=== PATIENT | male | born 1950 | race Hispanic/Latino ===

== ENCOUNTER 2021-02-21 13:04 | Emergency (ER) | payer MEDICARE ==
[2021-02-21 14:35] LABS: Bilirubin,Urine NEG (Negative); Blood,Urine SM (Negative); Color,Urine Amber (Yellow); Mucus,Urine 3+ /HPF; Renal Epithelial Cells,Urine 4 /LPF; Urobilinogen,Urine < 2.0 mg/dL (<2.0)
[2021-02-21 14:36] LABS: RBC,Urine < 1.0 /HPF (0.0-6.0)
[2021-02-21 14:54] LABS: Amphetamine Screen,Urine Negative; Benzodiazepines Screen,Urine Negative; Cannabinoid Screen,Urine Negative; Cocaine Screen,Urine Negative; Methadone Screen,Urine Negative; Opiate Screen,Urine Negative
[2021-02-21 15:30] LABS: Alanine Aminotransferase 27 units/L (7-56); Albumin 5.1 g/dL (3.9-5); BUN/Creatinine Ratio 38; Blood Urea Nitrogen 30 mg/dL (9-20); Calcium 9.8 mg/dL (8.4-10.2); Hemolysis Index 5
[2021-02-21 15:32] LABS: Basophils % (Auto) 0.8 % (0.0-1.8); Eosinophils % (Auto) 0.3 % (0.0-4.3); Hematocrit 46.4 % (35.5-45.6); Hemoglobin 15.4 gm/dl (11.8-15.2); Lymphocytes # (Auto) 1.4 K/mm3 (1.2-5.4); Lymphocytes % (Auto) 23.4 % (13.4-35.0); Mean Corpuscular HGB Conc 33 % (32-34); Mean Corpuscular Volume 85 fl (84-94); Monocytes # (Auto) 0.4 K/mm3 (0.0-0.8); Monocytes % (Auto) 6.9 % (0.0-7.3); Platelet Count 170 K/mm3 (140-440); Red Blood Count 5.49 M/mm3 (3.65-5.03); Red Cell Distribution Width 16.6 % (13.2-15.2)
--- NOTE | 2021-02-21 19:48 | Emergency Department Report ---
ED Psych HPI - General Chief Complaint: Altered Mental Status Stated Complaint: 1013/UNABLE TO CARE FOR HIMESELF/ Time Seen by Provider: 02/21/21 13:18 Source: patient Mode of arrival: Ambulatory - History of Present Illness Initial Comments: Chief complaint: Abnormal behavior HPI: This is a 70-year-old male with history of bipolar disorder schizophrenia who presents with abnormal behavior on 1013. Patient brought by [facility] department. License psychiatric nurse placed patient on 1013. Patient is unable to care for himself. Patient has been wandering around the neighborhood. Patient's not attending to his daily needs. Patient is directable. He denies suicidal homicidal ideation. He has poor insight. Officer informed me that he was found wandering the neighborhood. MD Complaint: other (Wandering neighborhood not eating not bathing) Associated Psychiatric Symptoms: none Quality: constant Improves With: none Worsens With: none Associated Symptoms: denies other symptoms - Related Data Previous Rx's Medication Instructions Recorded Last Taken Type Amoxicillin/Potassium Clav 1 each PO BID #10 tablet 11/19/17 Unknown Rx [Augmentin 875-125 Tablet] Benztropine [Cogentin] 1 mg PO BID #60 tablet 11/20/17 Unknown Rx clonazePAM [KlonoPIN] 0.5 mg PO BID #60 tablet 11/20/17 Unknown Rx Allergies Allergy/AdvReac Type Severity Reaction Status Date / Time No Known Allergies Allergy Unverified 11/13/17 14:18 ED Review of Systems ROS: Stated complaint: 1013/UNABLE TO CARE FOR HIMESELF/ Other details as noted in HPI Comment: Unobtainable due to pts medical conditions (Dementia) ED Past Medical Hx - Past Medical History Previous Medical History?: Yes Hx Psychiatric Treatment: Yes (Bipolar disorder, schizophrenia) - Surgical History Additional Surgical History: hernia - Social History Smoking Status: Former Smoker - Medications Home Medications: Home Medications Medication Instructions Recorded Confirmed Last Taken Type Amoxicillin/Potassium Clav 1 each PO BID #10 tablet 11/19/17 Unknown Rx [Augmentin 875-125 Tablet] Benztropine [Cogentin] 1 mg PO BID #60 tablet 11/20/17 Unknown Rx clonazePAM [KlonoPIN] 0.5 mg PO BID #60 tablet 11/20/17 Unknown Rx ED Physical Exam - General Limitations: Altered Mental Status General appearance: alert, in no apparent distress, other (Disheveled clothing cooperative poor insight) - Head Head exam: Present: atraumatic, normocephalic - Eye Eye exam: Present: normal appearance - ENT ENT exam: Present: mucous membranes moist - Neck Neck exam: Present: normal inspection, full ROM - Respiratory Respiratory exam: Present: normal lung sounds bilaterally. Absent: respiratory distress, wheezes, rales, rhonchi - Cardiovascular Cardiovascular Exam: Present: regular rate, normal rhythm, normal heart sounds. Absent: systolic murmur, diastolic murmur, rubs, gallop - GI/Abdominal GI/Abdominal exam: Present: soft, normal bowel sounds. Absent: distended, tenderness, guarding, rebound - Rectal Rectal exam: Present: deferred - Extremities Exam Extremities exam: Present: normal inspection - Back Exam Back exam: Present: normal inspection - Neurological Exam Neurological exam: Present: alert, other (Oriented to name) - Psychiatric Psychiatric exam: Present: flat affect - Skin Skin exam: Present: warm, dry, intact, normal color. Absent: rash ED Course Vital Signs 02/21/21 02/21/21 02/21/21 13:35 13:43 17:48 Temperature 97.6 F 98.0 F Pulse Rate 100 H 96 H Respiratory 18 20 Rate Blood Pressure 140/90 146/105 [Left] O2 Sat by Pulse 96 98 100 Oximetry 02/21/21 02/21/21 02/22/21 19:29 20:19 06:00 Temperature 97.9 F 97.6 F Pulse Rate 101 H 100 H Respiratory 18 18 Rate Blood Pressure 151/105 145/106 [Left] O2 Sat by Pulse 98 99 98 Oximetry 02/22/21 02/23/21 20:14 02:29 Temperature 98.4 F Pulse Rate 75 Respiratory 16 Rate Blood Pressure 113/74 [Left] O2 Sat by Pulse 98 96 Oximetry - Reevaluation(s) Reevaluation #1: 02/23/21 13:56 Mr. Iraheta will be transferred to [facility] psych for further treatment evaluation. Diagnosis bipolar disorder from mental health team ED Medical Decision Making - Lab Data Result diagrams: 02/21/21 13:22 02/21/21 13:27 Laboratory Results - last 24 hr 02/21/21 02/21/21 02/21/21 13:22 13:27 13:27 WBC 5.9 RBC 5.49 H Hgb 15.4 H Hct 46.4 H MCV 85 MCH 28 MCHC 33 RDW 16.6 H Plt Count 170 Lymph % (Auto) 23.4 [place] % (Auto) 6.9 Eos % (Auto) 0.3 Baso % (Auto) 0.8 Lymph # (Auto) 1.4 [place] # (Auto) 0.4 Eos # (Auto) 0.0 Baso # (Auto) 0.0 Seg Neutrophils % 68.6 Seg Neutrophils # 4.0 Sodium 143 Potassium 4.0 Chloride 100.7 Carbon Dioxide 27 Anion Gap 19 BUN 30 H Creatinine 0.8 Estimated GFR > 60 BUN/Creatinine Ratio 38 Glucose 101 H Calcium 9.8 Total Bilirubin 1.10 AST 38 ALT 27 Alkaline Phosphatase 93 Total Protein 7.8 Albumin 5.1 H Albumin/Globulin Ratio 1.9 Urine Color Urine Turbidity Urine pH Ur Specific [place] Urine Protein Urine Glucose (UA) Urine Ketones Urine Blood Urine Nitrite Urine Bilirubin Urine Urobilinogen Ur Leukocyte Esterase Urine WBC (Auto) Urine RBC (Auto) U Epithel Cells (Auto) Ur Renal Epithelial Cell Uric Acid Crystals Urine Mucus Salicylates < 0.3 L Urine Opiates Screen Urine Methadone Screen Acetaminophen Ur Barbiturates Screen Ur Phencyclidine Scrn Ur Amphetamines Screen U Benzodiazepines Scrn Urine Cocaine Screen U Marijuana (THC) Screen Drugs of Abuse Note Plasma/Serum Alcohol 02/21/21 02/21/21 02/21/21 13:27 13:27 Unknown WBC RBC Hgb Hct MCV MCH MCHC RDW Plt Count Lymph % (Auto) [place] % (Auto) Eos % (Auto) Baso % (Auto) Lymph # (Auto) [place] # (Auto) Eos # (Auto) Baso # (Auto) Seg Neutrophils % Seg Neutrophils # Sodium Potassium Chloride Carbon Dioxide Anion Gap BUN Creatinine Estimated GFR BUN/Creatinine Ratio Glucose Calcium Total Bilirubin AST ALT Alkaline Phosphatase Total Protein Albumin Albumin/Globulin Ratio Urine Color Yuridia Urine Turbidity Slightly-cloudy Urine pH 5.0 Ur Specific [place] 1.029 Urine Protein 30 mg/dl Urine Glucose (UA) Neg Urine Ketones 20 Urine Blood Sm Urine Nitrite Neg Urine Bilirubin Neg Urine Urobilinogen < 2.0 Ur Leukocyte Esterase Neg Urine WBC (Auto) 9.0 H Urine RBC (Auto) < 1.0 U Epithel Cells (Auto) 16.0 H Ur Renal Epithelial Cell 4 Uric Acid Crystals 3+ Urine Mucus 3+ Salicylates Urine Opiates Screen Urine Methadone Screen Acetaminophen 5.0 L Ur Barbiturates Screen Ur Phencyclidine Scrn Ur Amphetamines Screen U Benzodiazepines Scrn Urine Cocaine Screen U Marijuana (THC) Screen Drugs of Abuse Note Plasma/Serum Alcohol < 0.01 02/21/21 Unknown WBC RBC Hgb Hct MCV MCH MCHC RDW Plt Count Lymph % (Auto) [place] % (Auto) Eos % (Auto) Baso % (Auto) Lymph # (Auto) [place] # (Auto) Eos # (Auto) Baso # (Auto) Seg Neutrophils % Seg Neutrophils # Sodium Potassium Chloride Carbon Dioxide Anion Gap BUN Creatinine Estimated GFR BUN/Creatinine Ratio Glucose Calcium Total Bilirubin AST ALT Alkaline Phosphatase Total Protein Albumin Albumin/Globulin Ratio Urine Color Urine Turbidity Urine pH Ur Specific [place] Urine Protein Urine Glucose (UA) Urine Ketones Urine Blood Urine Nitrite Urine Bilirubin Urine Urobilinogen Ur Leukocyte Esterase Urine WBC (Auto) Urine RBC (Auto) U Epithel Cells (Auto) Ur Renal Epithelial Cell Uric Acid Crystals Urine Mucus Salicylates Urine Opiates Screen Negative Urine Methadone Screen Negative Acetaminophen Ur Barbiturates Screen Negative Ur Phencyclidine Scrn Negative Ur Amphetamines Screen Negative U Benzodiazepines Scrn Negative Urine Cocaine Screen Negative U Marijuana (THC) Screen Negative Drugs of Abuse Note Disclamer Plasma/Serum Alcohol - Medical Decision Making Clinical impression: Dementia, no evidence of psychosis. Patient is unable to perform ADLs without assistance. He will need stabilization and placement. I have requested evaluation for [facility] placement. I requested case management consultation. CBC chemistry within normal limits urine toxicology serum toxicology with normal limits. Contaminated urine evidence of UTI Critical care attestation.: If time is entered above; I have spent that time in minutes in the direct care of this critically ill patient, excluding procedure time. ED Disposition Clinical Impression: Dementia, Bipolar disorder Disposition: [address] [place] [address] Is pt being admited?: No Does the pt Need Aspirin: No Additional Instructions: OUTPATIENT MENTAL HEALTH RESOURCES [facility], [facility] Dylan Posadas MD: [address] [place] [address] [place] [address] [facility]: [facility] [address] [place] [address] [place], [place] [id number] [phone] [facility]: [facility] Healthcare: [address] [facility] [address] [place] [address] [facility] [id number] [facility]: Rosales Kirkpatrick MD: [address] [facility] [address] [facility] [id number] [facility]: [address] [place] [phone] [place] CRISIS AND ACCESS LINE:
--- NOTE | 2021-02-22 08:31 | Consultation ---
History of Present Illness - Reason for Consult Consult date: 02/22/21 Reason for consult: abnormal behavior - History of Present Psychiatric Illness Scot Leigh is a 71y/o male patient I evaluated today. The patient says he was brought to the hospital because police says he was acting strangely. He says "I was looking for my family and really don't know why I ended up back here. But they says I wasn't acting right." The patient is a poor historian and has poor insight overall. When asking where did he live, he was not really upfront. He initially said by himself, he then said with other people. He denies SI/HI, although it is documented by the gas station supervisor that his sister states the patient attempted to take all of his seroquel. When asking the patient about may llucinations, he says "sometimes, but not now." He says he hears voices sometimes but denies at present. The patient says he has a history of Bipolar and takes seroquel PAST PSYCHIATRIC HISTORY: Diagnoses: Bipolar Suicide attempts or Self-harm behavior: Denies Prior psychiatric hospitalizations: Yes Substance Abuse history: Denies Previous psychiatric medications tried: seroquel Outpatient treatment: Yes PAST MEDICAL HISTORY: None reported or document Family Psychiatric History: None reported or documented SOCIAL HISTORY Marital Status: Single Living Arrangements: Lives with family Employment Status: Disabled Access to guns/weapons: Denies Education: History of Abuse: Denies Legal History: Denies REVIEW OF SYSTEMS Constitutional: Negative for weight loss ENT: Negative for stridor Respiratory: Negative for cough or hemoptysis All other systems reviewed and are negative MENTAL STATUS EXAMINATION General Appearance and Behavior: Age appropriate, good hygiene, wearing appropriate clothes. calm, cooperative Cooperation: Cooperative Psychomotor Behavior: Psychomotor normal Mood: okay Affect and affective range: congruent with stated mood Thought Process: circumstantial Thought Content: None Speech: normal tone and pace Suicidal Ideation: Denies, but possibly not being upfront Homicidal Ideation: Denies Hallucinations: sometimes, but not at present Delusions:None elicited Impulse Control: Limited Insight and Judgment: Poor Memory: Limited Attention: distracted Orientation: a/o x 3 Assessment (1)Bipolar Disorder Current Visit: Yes Status: Acute Treatment Plan 1013 Start Seroquel 25mg po BID Start Mirtazepin 7.5mg po qhs Start Zoloft 25mg po daily Continue previously prescribed medications and follow up with outpatient psychiatry in 7 to 10 days upon discharge. The patient to comply with previously prescribed medications Risks, benefits and alternatives of medications discussed with the patient, questions answered and consent obtained from patient. PSYCHOTHERAPY: Supportive psychotherapy provided MEDICAL: Per primary team DELIRIUM PRECAUTIONS: Please re-orient patient frequently, keep lights on during the day, and minimize benzodiazepines and opiates as these medications could wo rsen patient's confusion. STUDENT ACCOUNTS COORDINATOR: Defer to primary DISPOSITION: Recommend acute psychiatric inpatient treatment due to the fact that although the patient denies SI, he was attempting to take a full bottle of seroquel. FOLLOW-UP: Will follow. Case staffed with Dr. Tam Medications and Allergies Allergies Allergy/AdvReac Type Severity Reaction Status Date / Time No Known Allergies Allergy Unverified 11/13/17 14:18 Home Medications Medication Instructions Recorded Confirmed Last Taken Type Amoxicillin/Potassium Clav 1 each PO BID #10 tablet 11/19/17 Unknown Rx [Augmentin 875-125 Tablet] Benztropine [Cogentin] 1 mg PO BID #60 tablet 11/20/17 Unknown Rx clonazePAM [KlonoPIN] 0.5 mg PO BID #60 tablet 11/20/17 Unknown Rx Mental Status Exam - Vital signs Last Vital Signs Temp 97.6 F 02/22/21 06:00 Pulse 100 H 02/22/21 06:00 Resp 18 02/22/21 06:00 BP 145/106 02/22/21 06:00 Pulse Ox 98 02/22/21 06:00 Results Result Diagrams: 02/21/21 13:22 02/21/21 13:27 Abnormal lab results 02/21/21 02/21/21 02/21/21 Range/Units 13:22 13:27 13:27 RBC 5.49 H (3.65-5.03) M/mm3 Hgb 15.4 H (11.8-15.2) gm/dl Hct 46.4 H (35.5-45.6) % RDW 16.6 H (13.2-15.2) % BUN 30 H (9-20) mg/dL Glucose 101 H (75-100) mg/dL Albumin 5.1 H (3.9-5) g/dL Urine WBC (Auto) (0.0-6.0) /HPF U Epithel Cells (Auto) (0-13.0) /HPF Salicylates < 0.3 L (2.8-20.0) mg/dL Acetaminophen (10.0-30.0) ug/mL 02/21/21 02/21/21 Range/Units 13:27 Unknown RBC (3.65-5.03) M/mm3 Hgb (11.8-15.2) gm/dl Hct (35.5-45.6) % RDW (13.2-15.2) % BUN (9-20) mg/dL Glucose (75-100) mg/dL Albumin (3.9-5) g/dL Urine WBC (Auto) 9.0 H (0.0-6.0) /HPF U Epithel Cells (Auto) 16.0 H (0-13.0) /HPF Salicylates (2.8-20.0) mg/dL Acetaminophen 5.0 L (10.0-30.0) ug/mL All other labs normal.
[2021-02-22] MEDS: QUEtiapine 25 MG TAB PO SCH ×2 (09:46→22:14)
[2021-02-22] MEDS: MIRTAZAPINE 15 MG TAB PO SCH (09:46)
[2021-02-22] MEDS: SERTRALINE 25 MG TAB PO SCH (09:46)
[2021-02-22] MEDS ORDERED: HALOPERIDOL LACTATE 5 MG/1 ML INJ IM ONE (22:06)
--- NOTE | 2021-02-22 22:10 | Event Note ---
Date: 02/22/21 The patient was evaluated in the emergency department for symptoms described in the history of present illness. He/she was evaluated in the context of the global COVID-19 pandemic, which necessitated consideration that the patient might be at risk for infection with the virus that causes COVID-19. Institutional protocols and algorithms that pertain to the evaluation of patients at risk for COVID-19 are in a state of rapid change based on information released by regulatory bodies including the CDC and federal and state organizations. These policies and algorithms were followed during the patient's care in the emergency department. Please note that these policies, procedures and recommendations changed on a rapid basis. Laboratory studies, vital signs, nursing documentation, ER documentation, and psychiatric documentation are reviewed and appreciated. Nursing team reports no acute events this morning or concerns. The patient is awake and ambulating and does not appear to be in any acute distress. The patient was deemed medically suitable for psychiatric disposition and placement during his initial ER evaluation. The patient continues to remain medically suitable for psychiatric placement and disposition. He is currently pending psychiatric placement. Vital Signs 02/21/21 02/21/21 02/21/21 13:35 13:43 17:48 Temperature 97.6 F 98.0 F Pulse Rate 100 H 96 H Respiratory 18 20 Rate Blood Pressure 140/90 146/105 [Left] O2 Sat by Pulse 96 98 100 Oximetry 02/21/21 02/21/21 02/22/21 19:29 20:19 06:00 Temperature 97.9 F 97.6 F Pulse Rate 101 H 100 H Respiratory 18 18 Rate Blood Pressure 151/105 145/106 [Left] O2 Sat by Pulse 98 99 98 Oximetry 02/22/21 20:14 Temperature Pulse Rate Respiratory Rate Blood Pressure [Left] O2 Sat by Pulse 98 Oximetry Lab Results 02/21/21 02/21/21 02/21/21 Range/Units 13:22 13:27 13:27 WBC 5.9 (4.5-11.0) K/mm3 RBC 5.49 H (3.65-5.03) M/mm3 Hgb 15.4 H (11.8-15.2) gm/dl Hct 46.4 H (35.5-45.6) % MCV 85 (84-94) fl MCH 28 (28-32) pg MCHC 33 (32-34) % RDW 16.6 H (13.2-15.2) % Plt Count 170 (140-440) K/mm3 Lymph % (Auto) 23.4 (13.4-35.0) % [place] % (Auto) 6.9 (0.0-7.3) % Eos % (Auto) 0.3 (0.0-4.3) % Baso % (Auto) 0.8 (0.0-1.8) % Lymph # (Auto) 1.4 (1.2-5.4) K/mm3 [place] # (Auto) 0.4 (0.0-0.8) K/mm3 Eos # (Auto) 0.0 (0.0-0.4) K/mm3 Baso # (Auto) 0.0 (0.0-0.1) K/mm3 Seg Neutrophils % 68.6 (40.0-70.0) % Seg Neutrophils # 4.0 (1.8-7.7) K/mm3 Sodium 143 (137-145) mmol/L Potassium 4.0 (3.6-5.0) mmol/L Chloride 100.7 (98-107) mmol/L Carbon Dioxide 27 (22-30) mmol/L Anion Gap 19 mmol/L BUN 30 H (9-20) mg/dL Creatinine 0.8 (0.8-1.3) mg/dL Estimated GFR > 60 ml/min BUN/Creatinine Ratio 38 % Glucose 101 H (75-100) mg/dL Calcium 9.8 (8.4-10.2) mg/dL Total Bilirubin 1.10 (0.1-1.2) mg/dL AST 38 (5-40) units/L ALT 27 (7-56) units/L Alkaline Phosphatase 93 (35-129) units/L Total Protein 7.8 (6.3-8.2) g/dL Albumin 5.1 H (3.9-5) g/dL Albumin/Globulin Ratio 1.9 % Urine Color (Yellow) Urine Turbidity (Clear) Urine pH (5.0-7.0) Ur Specific [place] (1.003-1.030) Urine Protein (Negative) mg/dL Urine Glucose (UA) (Negative) mg/dL Urine Ketones (Negative) mg/dL Urine Blood (Negative) Urine Nitrite (Negative) Urine Bilirubin (Negative) Urine Urobilinogen (<2.0) mg/dL Ur Leukocyte Esterase (Negative) Urine WBC (Auto) (0.0-6.0) /HPF Urine RBC (Auto) (0.0-6.0) /HPF U Epithel Cells (Auto) (0-13.0) /HPF Ur Renal Epithelial Cell /LPF Uric Acid Crystals Urine Mucus /HPF Salicylates < 0.3 L (2.8-20.0) mg/dL Urine Opiates Screen Urine Methadone Screen Acetaminophen (10.0-30.0) ug/mL Ur Barbiturates Screen Ur Phencyclidine Scrn Ur Amphetamines Screen U Benzodiazepines Scrn Urine Cocaine Screen U Marijuana (THC) Screen Drugs of Abuse Note Plasma/Serum Alcohol (0-0.07) % 02/21/21 02/21/21 02/21/21 Range/Units 13:27 13:27 Unknown WBC (4.5-11.0) K/mm3 RBC (3.65-5.03) M/mm3 Hgb (11.8-15.2) gm/dl Hct (35.5-45.6) % MCV (84-94) fl MCH (28-32) pg MCHC (32-34) % RDW (13.2-15.2) % Plt Count (140-440) K/mm3 Lymph % (Auto) (13.4-35.0) % [place] % (Auto) (0.0-7.3) % Eos % (Auto) (0.0-4.3) % Baso % (Auto) (0.0-1.8) % Lymph # (Auto) (1.2-5.4) K/mm3 [place] # (Auto) (0.0-0.8) K/mm3 Eos # (Auto) (0.0-0.4) K/mm3 Baso # (Auto) (0.0-0.1) K/mm3 Seg Neutrophils % (40.0-70.0) % Seg Neutrophils # (1.8-7.7) K/mm3 Sodium (137-145) mmol/L Potassium (3.6-5.0) mmol/L Chloride (98-107) mmol/L Carbon Dioxide (22-30) mmol/L Anion Gap mmol/L BUN (9-20) mg/dL Creatinine (0.8-1.3) mg/dL Estimated GFR ml/min BUN/Creatinine Ratio % Glucose (75-100) mg/dL Calcium (8.4-10.2) mg/dL Total Bilirubin (0.1-1.2) mg/dL AST (5-40) units/L ALT (7-56) units/L Alkaline Phosphatase (35-129) units/L Total Protein (6.3-8.2) g/dL Albumin (3.9-5) g/dL Albumin/Globulin Ratio % Urine Color [place] (Yellow) Urine Turbidity Slightly-cloudy (Clear) Urine pH 5.0 (5.0-7.0) Ur Specific [place] 1.029 (1.003-1.030) Urine Protein 30 mg/dl (Negative) mg/dL Urine Glucose (UA) Neg (Negative) mg/dL Urine Ketones 20 (Negative) mg/dL Urine Blood Sm (Negative) Urine Nitrite Neg (Negative) Urine Bilirubin Neg (Negative) Urine Urobilinogen < 2.0 (<2.0) mg/dL Ur Leukocyte Esterase Neg (Negative) Urine WBC (Auto) 9.0 H (0.0-6.0) /HPF Urine RBC (Auto) < 1.0 (0.0-6.0) /HPF U Epithel Cells (Auto) 16.0 H (0-13.0) /HPF Ur Renal Epithelial Cell 4 /LPF Uric Acid Crystals 3+ Urine Mucus 3+ /HPF Salicylates (2.8-20.0) mg/dL Urine Opiates Screen Urine Methadone Screen Acetaminophen 5.0 L (10.0-30.0) ug/mL Ur Barbiturates Screen Ur Phencyclidine Scrn Ur Amphetamines Screen U Benzodiazepines Scrn Urine Cocaine Screen U Marijuana (THC) Screen Drugs of Abuse Note Plasma/Serum Alcohol < 0.01 (0-0.07) % 02/21/21 Range/Units Unknown WBC (4.5-11.0) K/mm3 RBC (3.65-5.03) M/mm3 Hgb (11.8-15.2) gm/dl Hct (35.5-45.6) % MCV (84-94) fl MCH (28-32) pg MCHC (32-34) % RDW (13.2-15.2) % Plt Count (140-440) K/mm3 Lymph % (Auto) (13.4-35.0) % [place] % (Auto) (0.0-7.3) % Eos % (Auto) (0.0-4.3) % Baso % (Auto) (0.0-1.8) % Lymph # (Auto) (1.2-5.4) K/mm3 [place] # (Auto) (0.0-0.8) K/mm3 Eos # (Auto) (0.0-0.4) K/mm3 Baso # (Auto) (0.0-0.1) K/mm3 Seg Neutrophils % (40.0-70.0) % Seg Neutrophils # (1.8-7.7) K/mm3 Sodium (137-145) mmol/L Potassium (3.6-5.0) mmol/L Chloride (98-107) mmol/L Carbon Dioxide (22-30) mmol/L Anion Gap mmol/L BUN (9-20) mg/dL Creatinine (0.8-1.3) mg/dL Estimated GFR ml/min BUN/Creatinine Ratio % Glucose (75-100) mg/dL Calcium (8.4-10.2) mg/dL Total Bilirubin (0.1-1.2) mg/dL AST (5-40) units/L ALT (7-56) units/L Alkaline Phosphatase (35-129) units/L Total Protein (6.3-8.2) g/dL Albumin (3.9-5) g/dL Albumin/Globulin Ratio % Urine Color (Yellow) Urine Turbidity (Clear) Urine pH (5.0-7.0) Ur Specific [place] (1.003-1.030) Urine Protein (Negative) mg/dL Urine Glucose (UA) (Negative) mg/dL Urine Ketones (Negative) mg/dL Urine Blood (Negative) Urine Nitrite (Negative) Urine Bilirubin (Negative) Urine Urobilinogen (<2.0) mg/dL Ur Leukocyte Esterase (Negative) Urine WBC (Auto) (0.0-6.0) /HPF Urine RBC (Auto) (0.0-6.0) /HPF U Epithel Cells (Auto) (0-13.0) /HPF Ur Renal Epithelial Cell /LPF Uric Acid Crystals Urine Mucus /HPF Salicylates (2.8-20.0) mg/dL Urine Opiates Screen Negative Urine Methadone Screen Negative Acetaminophen (10.0-30.0) ug/mL Ur Barbiturates Screen Negative Ur Phencyclidine Scrn Negative Ur Amphetamines Screen Negative U Benzodiazepines Scrn Negative Urine Cocaine Screen Negative U Marijuana (THC) Screen Negative Drugs of Abuse Note Disclamer Plasma/Serum Alcohol (0-0.07) %
--- NOTE | 2021-02-23 10:50 | Progress Note ---
Subjective - Reason for Consult Consult date: 02/23/21 Reason for consult: SI - Chief Complaint Chief complaint: The patient was seen today. He says he feels pretty good. I ask him about being suicidal, he replies "no." I mention to the patient about trying to take all of his seroquel, he says "I don't remember that but if that's what they say." He denies hallucinations. REVIEW OF SYSTEMS Constitutional: Negative for weight loss ENT: Negative for stridor Respiratory: Negative for cough or hemoptysis All other systems reviewed and are negative MENTAL STATUS EXAMINATION General Appearance and Behavior: Age appropriate, good hygiene, wearing appropriate clothes. calm, cooperative Cooperation: Cooperative Psychomotor Behavior: Psychomotor normal Mood: okay Affect and affective range: congruent with stated mood Thought Process: circumstantial Thought Content: None Speech: normal tone and pace Suicidal Ideation: Denies, but possibly not being upfront Homicidal Ideation: Denies Hallucinations: sometimes, but not at present Delusions:None elicited Impulse Control: Limited Insight and Judgment: Poor Memory: Limited Attention: distracted Orientation: a/o x 3 Assessment (1)Bipolar Disorder Current Visit: Yes Status: Acute Treatment Plan 1013 Seroquel 25mg po BID Mirtazepin 7.5mg po qhs Zoloft 25mg po daily Continue previously prescribed medications and follow up with outpatient psychiatry in 7 to 10 days upon discharge. The patient to comply with previously prescribed medications Risks, benefits and alternatives of medications discussed with the patient, questions answered and consent obtained from patient. PSYCHOTHERAPY: Supportive psychotherapy provided MEDICAL: Per primary team DELIRIUM PRECAUTIONS: Please re-orient patient frequently, keep lights on during the day, and minimize benzodiazepines and opiates as these medications could worsen patient's confusion. POWER BALLAST MACHINE OPERATOR: Defer to primary DISPOSITION: Recommend acute psychiatric inpatient treatment due to the fact that although the patient denies SI, he was attempting to take a full bottle of seroquel. FOLLOW-UP: Will follow. Case staffed with Dr. Tam Mental Status Exam - Vital signs Last Vital Signs Temp 98.4 F 02/23/21 02:29 Pulse 75 02/23/21 02:29 Resp 16 02/23/21 02:29 BP 113/74 02/23/21 02:29 Pulse Ox 96 02/23/21 02:29
[2021-02-23] MEDS: QUEtiapine 25 MG TAB PO SCH (14:52)
[2021-02-23] MEDS: SERTRALINE 25 MG TAB PO SCH (14:52)
[2021-02-23] MEDS: MIRTAZAPINE 15 MG TAB PO SCH (14:52)
[2021-02-23 20:13] VITALS: BP 127/73
== END 2021-02-23 21:10 ==
LOC: ED 13:04
DX: F03.90 Unspecified dementia, unspecified severity, without behavioral disturbance, psychotic disturbance, mood disturbance, and anxiety (principal); F31.9 Bipolar disorder, unspecified; Z20.822 Contact with and (suspected) exposure to COVID-19; Z79.899 Other long term (current) drug therapy
CPT/HCPCS: 80053; 80307; 81001; 82962; 85025; 87086; 96372; 99285; J1630; U0003; 80320; G0480